=== PATIENT | female | born 1950 | race Caucasian/White ===

== ENCOUNTER 2019-01-15 22:40 | Inpatient (IN) | payer MEDICAID, MEDICARE ==
[~2019-01-15] VITALS: Ht 157.5 cm; Wt 79.5 kg
[~2019-01-15 22:40] MED LIST: ASCO500T10 PO; ASPI81TA31 PO; ATOR20TA PO; BLOO-140 IN; DIVA250T47 PO; ENOX40DI9 SQ; FERR325T24 PO; FOLI1TAB16 PO; GABA300C PO; HYDR-3980 PO; LACT1TAB20 PO; MAG30ORA PO; METF-440 PO; METR-147 IV; MONT10TA22 PO; MULT1TAB73 PO; OMEG1CAP55 PO; SERT100T PO; VANC500V5 GT; ZOLP5TAB2 PO
[2019-01-15] MEDS ORDERED: IV NS 1000 ML 1,000 ML IV ONE (23:15)
[2019-01-15] MEDS ORDERED: ONDANSETRON 4 MG/2 ML VIAL IV ONE (23:15)
[2019-01-15] MEDS ORDERED: ONDANSETRON 4 MG/2 ML VIAL ONE (23:37)
[2019-01-15 23:38] LABS: BASOPHILS # (AUTO) 0.1 K/uL (0.0-8.0); BASOPHILS % (AUTO) 0.4 % (0.0-2.0); EOSINOPHILS # (AUTO) 0.1 K/uL (0.0-0.7); EOSINOPHILS % (AUTO) 0.9 % (0.0-7.0); HEMATOCRIT 38.8 % (31.2-41.9); HEMOGLOBIN 12.7 g/dL (10.9-14.3); LYMPHOCYTES # (AUTO) 1.2 K/uL (20.0-40.0); LYMPHOCYTES % (AUTO) 10.9 % (20.5-51.5); MEAN CORPUSCULAR HEMOGLOBIN 33.9 uug (24.7-32.8); MEAN CORPUSCULAR HGB CONC 33 g/dL (32.3-35.6); MEAN CORPUSCULAR VOLUME 103.7 fL (75.5-95.3); MONOCYTES # (AUTO) 0.6 K/uL (2.0-10.0); MONOCYTES % (AUTO) 5.2 % (0.0-11.0); NEUTROPHILS # (AUTO) 9.3 K/uL (1.8-8.9); NEUTROPHILS % (AUTO) 82.6 % (38.5-71.5); PLATELET COUNT (AUTO) 278 K/uL (179-408); RED BLOOD CELL COUNT(AUTO) 3.74 MIL/uL (3.63-4.92); WHITE BLOOD COUNT (AUTO) 11.3 K/uL (3.8-11.8)
[2019-01-15] MEDS ORDERED: METRONIDAZOLE 500 MG/NS 100 ML PIGGYBACK IV ONE (23:45)
[2019-01-15 23:51] LABS: BILIRUBIN,DIRECT 0.1 mg/dL (0.0-0.2); BILIRUBIN,TOTAL 0.5 mg/dL (0.2-1.0); CREATININE 0.8 mg/dL (0.6-1.3); POTASSIUM 4.3 mmol/L (3.5-5.1); TOTAL PROTEIN, SERUM 7.3 g/dL (6.4-8.2)
--- NOTE | 2019-01-15 23:55 | NUR ---
DR ZAFAR([facility]) ON THE PHONE W/ DR TODD
--- NOTE | 2019-01-16 00:42 | NUR ---
PT ASLEEP BUT EASILY ROUSED PT WILL BE ADMITTED TO TELE RM [address] BECK DX: NAUSEA /VOMITTING ALL BELONGINGS W/ PT BELONGINGS LIST SIGNED/COSIGNED
[2019-01-16] MEDS ORDERED: MAGNESIUM HYDROXIDE 30 ML LIQUID UDC PO PRN (00:45)
[2019-01-16] MEDS ORDERED: Z GUARD REMEDY PASTE 57 GM TUBE TOP PRN (00:45)
[2019-01-16] MEDS ORDERED: DEXTROSE 50% 50 ML DISP.SYRIN IV PRN (00:45)
[2019-01-16] MEDS ORDERED: ACETAMINOPHEN 325 MG TABLET PO PRN (00:45)
[2019-01-16] MEDS ORDERED: ONDANSETRON 4 MG/2 ML VIAL IV PRN (00:45)
[2019-01-16] MEDS ORDERED: MORPHINE SULFATE 2 MG/1 ML DISP.SYRIN IV PRN (00:45)
--- NOTE | 2019-01-16 00:50 | NUR ---
HAND OFF AND SBAR GIVEN TO DANIELA BUNCH
--- NOTE | 2019-01-16 01:00 | NUR ---
TRANSPORTED TO [facility] ROOM 302 [facility] LOWEST POSITION NAD
[2019-01-16] MEDS ORDERED: ENOXAPARIN SODIUM 40 MG/0.4 ML DISP.SYRIN SQ ONE (01:45)
--- NOTE | 2019-01-16 02:00 | NUR ---
Received patient from ER. Dx: Abdominal pain, N/V, Diarrhea. No signs of acute distress noted. Patient is A/Ox2. Dozing off during assessment, but easily to arouse. Patient stated she is just tired. Patient was given a bed bath, stool sample collected. IV on the left AC is intact and patent. Patient noted with sacral wound and wound on the left lower extremity. Pictures in chart. Safety measures initiated. Bed is low and locked, call light within reach. Will continue with the admission process.
[2019-01-16 02:16] VITALS: BP 120/52
[2019-01-16] MEDS: IV D5 1/2 NS 1000 ML 1,000 ML IV PRN ×2 (02:16→19:40)
[2019-01-16] MEDS ORDERED: METRONIDAZOLE 500 MG/NS 100ML 100 ML IV ONE (04:35)
[2019-01-16 06:11] VITALS: BP 115/52
[2019-01-16] MEDS: METRONIDAZOLE 500 MG/NS 100ML 500 MG in PREMIXED 1 EACH IV SCH ×3 (06:28→22:20)
[2019-01-16 06:29] LABS: BASOPHILS % (AUTO) 0.3 % (0.0-2.0); EOSINOPHILS # (AUTO) 0.1 K/uL (0.0-0.7); EOSINOPHILS % (AUTO) 0.8 % (0.0-7.0); HEMATOCRIT 37.6 % (31.2-41.9); HEMOGLOBIN 12.6 g/dL (10.9-14.3); LYMPHOCYTES % (AUTO) 10.6 % (20.5-51.5); MEAN CORPUSCULAR HEMOGLOBIN 34.2 uug (24.7-32.8); MEAN CORPUSCULAR HGB CONC 33 g/dL (32.3-35.6); MEAN CORPUSCULAR VOLUME 102.4 fL (75.5-95.3); MONOCYTES # (AUTO) 0.6 K/uL (2.0-10.0); MONOCYTES % (AUTO) 6.4 % (0.0-11.0); NEUTROPHILS % (AUTO) 81.9 % (38.5-71.5); PLATELET COUNT (AUTO) 297 K/uL (179-408); RED BLOOD CELL COUNT(AUTO) 3.67 MIL/uL (3.63-4.92); WHITE BLOOD COUNT (AUTO) 9.8 K/uL (3.8-11.8)
[2019-01-16] MEDS: PANTOPRAZOLE SODIUM 40 MG TABLET.DR PO SCH (06:34)
--- NOTE | 2019-01-16 06:34 | NUR ---
did not administer protonix as patient is NPO, also patient has been complaining of nausea so did not want her to vomit.
[2019-01-16] MEDS: BLOOD SUGAR DIAGNOSTIC 1 EACH STRIP VI SCH ×4 (06:48→21:47)
[2019-01-16 06:50] LABS: ALANINE AMINOTRANSFERASE < 6 U/L (14-59); ALKALINE PHOSPHATASE 73 U/L (50-136); ASPARTATE AMINOTRANSFERASE < 5 U/L (15-37); BILIRUBIN,TOTAL 0.5 mg/dL (0.2-1.0); CARBON DIOXIDE 32 mmol/L (21-32); CHLORIDE 98 mmol/L (98-107); CHOLESTEROL 130 mg/dL (<200); CREATININE 0.8 mg/dL (0.6-1.3); GLUCOSE 249 mg/dL (74-106); HDL CHOLESTEROL 45 mg/dL (40-60); MAGNESIUM 1.5 mg/dL (1.8-2.4); PHOSPHOROUS 4.4 mg/dL (2.5-4.9); TOTAL PROTEIN, SERUM 6.8 g/dL (6.4-8.2); TRIGLYCERIDES 223 MG/DL (30-150); UREA NITROGEN, BLOOD 12 mg/dL (7-18)
[2019-01-16 06:52] LABS: THYROID STIMULATING HORMONE 1.418 mIU/mL (0.358-3.740)
--- NOTE | 2019-01-16 07:06 | NUR ---
Patient needs frequent redirection, no distress noted. No vomiting noted. Patient states "I don't feel good" but is not able to specify what is making her feel bad. ordered flu vaccine. IVF running on the left AC, no s/s of infection or infiltration noted. Will endorse to next shift.
--- NOTE | 2019-01-16 07:10 | NUR ---
PATIENT RESTING IN BED. NO ACUTE DISTRESS NOTED. PATIENT DENIES PAIN AND DISCOMFORT. BED IN LOWEST POSITION, SIDE RAILS UP X2, CALL LIGHT WITHIN REACH. WILL CONTINUE TO MONITOR.
[2019-01-16] MEDS: GABAPENTIN 300 MG CAPSULE PO SCH ×3 (08:22→17:29)
[2019-01-16] MEDS: ASCORBIC ACID 500 MG TABLET PO SCH (08:22)
[2019-01-16] MEDS: ACIDOPHILUS/BULGARICUS CHEW TAB PO SCH ×2 (08:22→17:29)
[2019-01-16] MEDS: MULTIVITAMINS,THERAPEUTIC TABLET PO SCH (08:22)
[2019-01-16] MEDS: FOLIC ACID 1 MG TABLET PO SCH (08:22)
[2019-01-16] MEDS: ASPIRIN 81 MG TAB.CHEW PO SCH (08:22)
[2019-01-16] MEDS: INSULIN REGULAR, HUMAN 300 UNIT/3 ML VIAL SQ PRN ×4 (08:24→21:46)
[2019-01-16] MEDS ORDERED: Medication Not On Formulary EA (Multivitamins (Multivitamin) 1 EACH) PO SCH (09:00)
[2019-01-16] MEDS ORDERED: Medication Not On Formulary EA (Omega-3 Acid Ethyl Esters (Lovaza) 2 CAP) PO SCH (09:00)
[2019-01-16] MEDS ORDERED: SERTRALINE HCL 100 MG TABLET PO SCH ×2 (09:00)
[2019-01-16] MEDS ORDERED: Medication Not On Formulary EA (Lactobacillus Acidophilus (Acidophilus) 1 EACH) PO SCH (09:00)
[2019-01-16] MEDS ORDERED: SERT50TA12 PO (10:23)
[2019-01-16] MEDS: SERTRALINE HCL 50 MG TABLET PO SCH (10:48)
[2019-01-16] MEDS: OMEGA-3 FATTY ACIDS/FISH OIL CAPSULE PO SCH ×2 (10:49→17:29)
[2019-01-16 11:13] VITALS: BP 142/61
[2019-01-16] MEDS ORDERED: INFLUENZA VACCINE 2019-2020 0.5 ML DISP.SYRIN IM ONE (11:30)
[2019-01-16] MEDS: MAGNESIUM SULFATE/D5W 100 ML IV SCH ×2 (12:09→13:31)
[2019-01-16 15:57] VITALS: BP 133/61
[2019-01-16] MEDS: MONTELUKAST SODIUM 10 MG TABLET PO SCH (17:29)
[2019-01-16] MEDS: VANCOMYCIN FOR PO/GT/NG USE PO SCH ×2 (18:10→23:36)
--- NOTE | 2019-01-16 18:26 | NUR ---
PATIENT RESTED INTERMITTENTLY THROUGHOUT DAY. PATIENT EXTREMELY CONFUSED. MAGNESIUM REPLACED. IV ANTIBIOTICS ADMINISTERED. PATIENT TESTED POSITIVE FOR CDIFF. PATIENT ON CONTACT ISOLATION. PATIENT PLACED ON VANCOMYCIN. SAFETY MEASURES PROVIDED.
[2019-01-16 19:30] VITALS: BP 139/69
--- NOTE | 2019-01-16 20:00 | NUR ---
Patient received into care, sleeping in bed, resting comfortably. IV cath 20g in left a/c is patent and intact with D5 1/2 NS running at 80ml/hr. Patient has no s/s of acute distress or discomfort noted or observed. All safety and fall precaution measures are in place. Call light and personal items are within reach at all times. Will continue to monitor.
[2019-01-16] MEDS: DIVALPROEX ER 250 MG TAB.SR.24H PO SCH (21:44)
[2019-01-16] MEDS: ATORVASTATIN 20 MG TABLET PO SCH (21:44)
[2019-01-16] MEDS: ENOXAPARIN SODIUM 40 MG/0.4 ML DISP.SYRIN SQ SCH (21:46)
--- NOTE | 2019-01-16 23:45 | NUR ---
Left AC IV cath dislodged. Moved to right forearm, 22 gauge.
[2019-01-17] VITALS: BP 135/63
--- NOTE | 2019-01-17 | NUR ---
Prescribed PO Vanco 250 mg (0.5 oral suspension) not in pyxis. Faxed order to smokehouse operator who advised this medication can only be filled by pharmacy. Medication not available so not able to provide to patient.
[2019-01-17] MEDS: METRONIDAZOLE 500 MG/NS 100ML 500 MG in PREMIXED 1 EACH IV SCH ×3 (05:21→22:38)
[2019-01-17] MEDS: BLOOD SUGAR DIAGNOSTIC 1 EACH STRIP VI SCH ×4 (05:34→20:48)
[2019-01-17] MEDS: VANCOMYCIN FOR PO/GT/NG USE PO SCH ×3 (05:39→18:15)
--- NOTE | 2019-01-17 05:39 | NUR ---
Prescribed PO Vanco 250 mg (0.5 oral suspension) not in pyxis. Medication not available so not able to provide to patient.
[2019-01-17 06:00] VITALS: BP 147/70
[2019-01-17] MEDS: PANTOPRAZOLE SODIUM 40 MG TABLET.DR PO SCH (06:15)
[2019-01-17] MEDS: glipiZIDE 5 MG TABLET PO SCH ×2 (06:31→17:16)
--- NOTE | 2019-01-17 06:36 | NUR ---
Patient slept intermittently throughout night with no complaints of pain or discomfort verbalized. All prescribed medications were given as ordered and tolerated well, with no adverse side effects verbalized or observed. All safety and fall precaution measures remain in place. Call light and personal items are in place.
[2019-01-17 06:53] LABS: BASOPHILS % (AUTO) 0.3 % (0.0-2.0); EOSINOPHILS # (AUTO) 0.1 K/uL (0.0-0.7); EOSINOPHILS % (AUTO) 2.2 % (0.0-7.0); HEMATOCRIT 36.2 % (31.2-41.9); HEMOGLOBIN 11.9 g/dL (10.9-14.3); LYMPHOCYTES % (AUTO) 17.5 % (20.5-51.5); MEAN CORPUSCULAR HEMOGLOBIN 34.3 uug (24.7-32.8); MEAN CORPUSCULAR HGB CONC 33 g/dL (32.3-35.6); MEAN CORPUSCULAR VOLUME 104.3 fL (75.5-95.3); MONOCYTES # (AUTO) 0.2 K/uL (2.0-10.0); MONOCYTES % (AUTO) 4.4 % (0.0-11.0); NEUTROPHILS # (AUTO) 4.3 K/uL (1.8-8.9); NEUTROPHILS % (AUTO) 75.6 % (38.5-71.5); PLATELET COUNT (AUTO) 261 K/uL (179-408); RED BLOOD CELL COUNT(AUTO) 3.47 MIL/uL (3.63-4.92)
[2019-01-17 07:00] LABS: BILIRUBIN,TOTAL 0.4 mg/dL (0.2-1.0); CREATININE 0.7 mg/dL (0.6-1.3); MAGNESIUM 1.8 mg/dL (1.8-2.4); PHOSPHOROUS 2.8 mg/dL (2.5-4.9); POTASSIUM 3.4 mmol/L (3.5-5.1); TOTAL PROTEIN, SERUM 6.8 g/dL (6.4-8.2)
[2019-01-17 07:08] LABS: WHITE BLOOD COUNT (AUTO) 5.7 K/uL (3.8-11.8)
[2019-01-17] MEDS ORDERED: POTASSIUM CHLORIDE 20 MEQ TAB.PRT.SR PO ONE (08:00)
[2019-01-17] MEDS: ASCORBIC ACID 500 MG TABLET PO SCH (08:13)
[2019-01-17] MEDS: GABAPENTIN 300 MG CAPSULE PO SCH ×3 (08:13→17:15)
[2019-01-17] MEDS: METFORMIN HCL 500 MG TABLET PO SCH ×2 (08:13→17:16)
[2019-01-17] MEDS: SERTRALINE HCL 50 MG TABLET PO SCH (08:13)
[2019-01-17] MEDS: MULTIVITAMINS,THERAPEUTIC TABLET PO SCH (08:13)
[2019-01-17] MEDS: ACIDOPHILUS/BULGARICUS CHEW TAB PO SCH ×2 (08:13→17:15)
[2019-01-17] MEDS: ASPIRIN 81 MG TAB.CHEW PO SCH (08:13)
[2019-01-17] MEDS: FOLIC ACID 1 MG TABLET PO SCH (08:13)
[2019-01-17] MEDS: INSULIN REGULAR, HUMAN 300 UNIT/3 ML VIAL SQ PRN ×3 (08:17→21:05)
[2019-01-17] MEDS: OMEGA-3 FATTY ACIDS/FISH OIL CAPSULE PO SCH ×2 (10:36→17:00)
[2019-01-17 11:38] VITALS: BP 124/59
--- NOTE | 2019-01-17 12:04 | NUR ---
WOUND CARE CONSULT: PT PRESENTS WITH INCONTINENCE OF LOOSE STOOL, SACRAL SCAR, LEFT LOWER LEG WOUND AND RT ABOVE KNEE AMPUTATION SITE WITH IRREGULAR SCARRING, SOME CRUSTING OF SCAR, ALL PRESENT ON ADMISSION. RECOMMEND DPM CONSULT FOR LEFT LOWER LEG WOUND. DR ZULUAGA NOTIFIED OF DPM CONSULT REQUEST. RECOMMENDATIONS MADE FOR SKIN PROTECTION. DISCUSSED WITH NURSING STAFF. WILL SEE PRN. JIMÉNEZ IN AGREEMENT WITH PLAN OF CARE. DEFER TO DPM FOR LOWER EXTREMITY. Addendum: 01/17/19 at 1207 by CORNELL SMITH RN Amended: Links added.
[2019-01-17] MEDS: IV D5 1/2 NS 1000 ML 1,000 ML IV PRN (13:58)
[2019-01-17 15:13] VITALS: BP 133/89
[2019-01-17] MEDS: MONTELUKAST SODIUM 10 MG TABLET PO SCH (17:16)
[2019-01-17] MEDS: HYDROCODONE/APAP 5-325MG TABLET PO PRN (19:13)
[2019-01-17 20:12] VITALS: BP 138/61
[2019-01-17] MEDS: ATORVASTATIN 20 MG TABLET PO SCH (21:02)
[2019-01-17] MEDS: DIVALPROEX ER 250 MG TAB.SR.24H PO SCH (21:02)
[2019-01-17] MEDS: ENOXAPARIN SODIUM 40 MG/0.4 ML DISP.SYRIN SQ SCH (21:02)
[2019-01-18] MEDS: VANCOMYCIN FOR PO/GT/NG USE PO SCH ×4 (00:20→18:00)
[2019-01-18 04:19] VITALS: BP 131/72
[2019-01-18] MEDS: METRONIDAZOLE 500 MG/NS 100ML 500 MG in PREMIXED 1 EACH IV SCH ×2 (05:06→14:00)
[2019-01-18] MEDS: PANTOPRAZOLE SODIUM 40 MG TABLET.DR PO SCH (06:40)
[2019-01-18] MEDS: BLOOD SUGAR DIAGNOSTIC 1 EACH STRIP VI SCH ×3 (06:53→17:20)
[2019-01-18] MEDS: glipiZIDE 5 MG TABLET PO SCH (08:00)
[2019-01-18] MEDS: MULTIVITAMINS,THERAPEUTIC TABLET PO SCH (08:00)
[2019-01-18] MEDS: ASCORBIC ACID 500 MG TABLET PO SCH (08:01)
[2019-01-18] MEDS: GABAPENTIN 300 MG CAPSULE PO SCH ×3 (08:01→17:17)
[2019-01-18] MEDS: OMEGA-3 FATTY ACIDS/FISH OIL CAPSULE PO SCH ×2 (08:01→17:16)
[2019-01-18] MEDS: FOLIC ACID 1 MG TABLET PO SCH (08:01)
[2019-01-18] MEDS: SERTRALINE HCL 50 MG TABLET PO SCH (08:02)
[2019-01-18] MEDS: ACIDOPHILUS/BULGARICUS CHEW TAB PO SCH ×2 (08:02→17:16)
[2019-01-18] MEDS: ASPIRIN 81 MG TAB.CHEW PO SCH (08:02)
[2019-01-18] MEDS: METFORMIN HCL 500 MG TABLET PO SCH ×2 (08:02→17:16)
[2019-01-18] MEDS: INSULIN REGULAR, HUMAN 300 UNIT/3 ML VIAL SQ PRN ×2 (08:07→11:59)
[2019-01-18] MEDS: HYDROCODONE/APAP 5-325MG TABLET PO PRN (09:53)
[2019-01-18 11:35] VITALS: BP 146/63
[2019-01-18] MEDS ORDERED: VANC500V PO (12:49)
[2019-01-18] MEDS ORDERED: ATOR10TA PO (12:49)
[2019-01-18] MEDS ORDERED: HYDR-3326 PO (12:49)
[2019-01-18] MEDS ORDERED: GLIP10TA11 PO (12:49)
[2019-01-18] MEDS ORDERED: FAMO-132 PO (12:49)
[2019-01-18] MEDS ORDERED: MENT71OI TOP (12:49)
[2019-01-18] MEDS ORDERED: ACET325T53 PO (12:49)
[2019-01-18] MEDS ORDERED: METF-440 PO (12:49)
--- NOTE | 2019-01-18 13:30 | NUR ---
Pt received this morning, AAOx3, liquid diet advanced to regular diabetic diet. Pt seen by Dr. Almendarez. Isolation order removed. Pt approved for D/C this afternoon. Spoke with son regarding plan of care. Pt pulled out IV from right AC. IV antibiotics c/s at this time. All safety and comfort measures in place. Call light placed within reach. Will continue to monitor.
[2019-01-18 14:10] VITALS: BP 135/69
[2019-01-18] MEDS ORDERED: glipiZIDE 10 MG TABLET PO SCH (16:30)
[2019-01-18] MEDS: MONTELUKAST SODIUM 10 MG TABLET PO SCH (17:16)
--- NOTE | 2019-01-18 18:20 | NUR ---
Discharge order received, paperwork completed, reviewed with Pt, signed and copies placed in chart. Skin integrity photos refused of small healing scab on left loera and sacral redness. VS stable. Pt complaint with routine medications except for insuolin coverage of BS 213 and DM PO medication. Pt denies pain, anxious for ambulance to arrive. Son and room mate both contacted regarding Pt discharge and transportation. Report called and given to Windy BUNCH. All discharge concerns addressed. Belongings accounted for and form signed. Pt safely transferred to [facility] and will be removed from system shortly.
== END 2019-01-18 17:45 | DRG 872 ==
LOC: ER 22:41 → MEDSURG3 23:55
PROVIDERS: ADMIT Nurse Practitioner Acute Care; ATTEND Internal Medicine
DX: A41.9 Sepsis, unspecified organism (principal); A04.72 Enterocolitis due to Clostridium difficile, not specified as recurrent; L97.821 Non-pressure chronic ulcer of other part of left lower leg limited to breakdown of skin; E44.0 Moderate protein-calorie malnutrition; D68.59 Other primary thrombophilia; J98.11 Atelectasis; E11.51 Type 2 diabetes mellitus with diabetic peripheral angiopathy without gangrene; R11.2 Nausea with vomiting, unspecified; J44.9 Chronic obstructive pulmonary disease, unspecified; E78.5 Hyperlipidemia, unspecified; E11.622 Type 2 diabetes mellitus with other skin ulcer; E11.65 Type 2 diabetes mellitus with hyperglycemia; Z89.611 Acquired absence of right leg above knee; Z79.82 Long term (current) use of aspirin; Z79.4 Long term (current) use of insulin; Z86.19 Personal history of other infectious and parasitic diseases; E11.40 Type 2 diabetes mellitus with diabetic neuropathy, unspecified; E66.9 Obesity, unspecified; Z68.32 Body mass index [BMI] 32.0-32.9, adult; Z74.09 Other reduced mobility; Z79.899 Other long term (current) drug therapy; I70.0 Atherosclerosis of aorta; I10 Essential (primary) hypertension; G89.29 Other chronic pain; M54.9 Dorsalgia, unspecified; F17.210 Nicotine dependence, cigarettes, uncomplicated; F41.9 Anxiety disorder, unspecified
CPT/HCPCS: 36415; 71045; 83690; 83735; 84100; 84443; 85025; 86625; 87046; 90686; A4663; G0378; J1650; J1815; J2405; J3370; J3475; J3490; J7030